=== PATIENT | male | born 1960 ===

== ENCOUNTER 2018-02-06 12:28 | Inpatient (IN) | payer MEDICARE, MEDICAID ==
--- NOTE | 2018-02-06 13:31 | C.PDOC ---
History Of Present Illness 57 year old male with +HIV CD4 viral load presents to the ED for left leg pain and a positve DVT study. Per Dr. calix patient has multiple DVTs on the left leg and sent to the ED for evaluation and treatment. Denies fever, nausea, vomiting, and other associated symptoms. Time Seen by Provider: 02/06/18 13:20 Chief Complaint (Nursing): Lower Extremity Problem/Injury History Per: Patient History/Exam Limitations: no limitations Onset/Duration Of Symptoms: Days Current Symptoms Are (Timing): Still Present Past Medical History Reviewed: Historical Data, Nursing Documentation, Vital Signs Vital Signs: Last Vital Signs Temp 98.8 F 02/07/18 15:00 Pulse 78 02/07/18 15:00 Resp 20 02/07/18 15:00 BP 108/68 02/07/18 15:00 Pulse Ox 96 02/07/18 15:00 - Medical History PMH: HIV, HTN, Hypercholesterolemia Other Surgeries: left hip surgery, right leg implant Family History: States: Unknown Family Hx - Social History Hx Alcohol Use: No Hx Substance Use: No - Immunization History Hx Tetanus Toxoid Vaccination: No Hx Influenza Vaccination: No Hx Pneumococcal Vaccination: No Review Of Systems Except As Marked, All Systems Reviewed And Found Negative. Constitutional: Negative for: Fever, Chills Gastrointestinal: Negative for: Nausea, Vomiting Musculoskeletal: Positive for: Leg Pain (left leg pain) Physical Exam - Physical Exam Appears: Non-toxic Skin: Warm, Dry Head: Atraumatic, Normacephalic Eye(s): bilateral: Normal Inspection Oral Mucosa: Moist Cardiovascular: Rhythm Regular Respiratory: Other (NARD) Extremity: No Deformity, Swelling (left leg ) Neurological/Psych: Oriented x3, Normal Speech, Normal Sensation, Normal Reflexes ED Course And Treatment - Laboratory Results Result Diagrams: 02/07/18 06:14 02/07/18 06:14 O2 Sat by Pulse Oximetry: 97 (RA) Pulse Ox Interpretation: Normal Medical Decision Making Medical Decision Making: Plan: --Blood sent. --Venous Duplex Scan Lower Left Extremity. Progress/Update Per pmd, multiple dvt left leg. needs admission. no cardiopulm complaint. no cp no sob. Discussed case with Dr. Valdovinos who agreed to take on the case. Disposition - Disposition Disposition: HOSPITALIZED Disposition Time: 03:00 Condition: STABLE - Clinical Impression Clinical Impression: DVT (deep venous thrombosis) - Scribe Statement The provider has reviewed the documentation as recorded by the Scribe (Leny Lopes) Provider Attestation: All medical record entries made by the Scribe were at my direction and personally dictated by me. I have reviewed the chart and agree that the record accurately reflects my personal performance of the history, physical exam, medical decision making, and the department course for this patient. I have also personally directed, reviewed, and agree with the discharge instructions and disposition.
[2018-02-06 14:12] LABS: BASO # 0.1 K/uL (0.0-0.2); BASO % 1.1 % (0.0-2.0); EOS # 0.2 K/uL (0.0-0.7); EOS % 3.6 % (0.0-4.0); HEMOGLOBIN 14.6 g/dL (12.0-18.0); LYMPH # 1.9 K/uL (1.0-4.3); LYMPH % 38.3 % (20.0-40.0); MEAN CELL VOLUME 79.3 fL (80.0-94.0); MEAN CORPUSCULAR HEMOGLOBIN 26.5 pg (27.0-31.0); MEAN CORPUSCULAR HGB CONC 33.4 g/dL (33.0-37.0); MONO # 0.4 K/uL (0.0-0.8); MONO % 7.7 % (0.0-10.0); NEUT # 2.5 K/uL (1.8-7.0); NEUT % 49.3 % (50.0-75.0); RBC 5.5 Mil/uL (4.40-5.90); RED CELL DISTRIBUTION WIDTH 13.9 % (11.5-14.5); WHITE BLOOD COUNT 5.1 K/uL (4.8-10.8)
[2018-02-06 14:20] LABS: ALBUMIN 4.3 g/dL (3.5-5.0); BLOOD UREA NITROGEN 16 mg/dL (9-20); CALCIUM 9.3 mg/dl (8.6-10.4); GFR NON-AFRICAN AMERICAN > 60
[2018-02-06 14:23] LABS: INR 1.1; PROTHROMBIN TIME 11.9 SECONDS (9.7-12.2)
[2018-02-06 14:31] LABS: ALT/SGPT 85 U/L (21-72); AST/SGOT 57 U/L (17-59)
[2018-02-06] MEDS ORDERED: Enoxaparin 150 mg Syringe SC STA (14:45)
[2018-02-06 14:48] VITALS: RESP 20
[2018-02-07 06:36] LABS: BASO % 0.9 % (0.0-2.0); EOS # 0.3 K/uL (0.0-0.7); EOS % 5.6 % (0.0-4.0); HEMOGLOBIN 14.4 g/dL (12.0-18.0); LYMPH # 1.7 K/uL (1.0-4.3); LYMPH % 36.8 % (20.0-40.0); MEAN CELL VOLUME 78.9 fL (80.0-94.0); MEAN CORPUSCULAR HEMOGLOBIN 26.4 pg (27.0-31.0); MEAN CORPUSCULAR HGB CONC 33.4 g/dL (33.0-37.0); MEAN PLATELET VOLUME 8.8 fL (7.2-11.7); MONO # 0.4 K/uL (0.0-0.8); MONO % 9.2 % (0.0-10.0); NEUT # 2.1 K/uL (1.8-7.0); NEUT % 47.5 % (50.0-75.0); NRBC % 0.1 % (0.0-2.0); RBC 5.46 Mil/uL (4.40-5.90); RED CELL DISTRIBUTION WIDTH 13.6 % (11.5-14.5); WHITE BLOOD COUNT 4.5 K/uL (4.8-10.8)
[2018-02-07 06:40] LABS: INR 1.1; PROTHROMBIN TIME 12.1 SECONDS (9.7-12.2)
[2018-02-07 07:44] LABS: ALB/GLOB RATIO 0.9 (1.0-2.1); ALBUMIN 3.7 g/dL (3.5-5.0); ALT/SGPT 73 U/L (21-72); AST/SGOT 45 U/L (17-59); BLOOD UREA NITROGEN 15 mg/dL (9-20); GFR NON-AFRICAN AMERICAN > 60
[2018-02-07] MEDS ORDERED: Enoxaparin 60 mg Syringe SC SCH (10:00)
--- NOTE | 2018-02-07 11:05 | CP.PCM.HP ---
History of Present Illness - History of Present Illness History of Present Illness: 57 year old male with +HIV CD4 viral load presents to the ED for left leg pain and a positve DVT study. Per Dr. calix patient has multiple DVTs on the left leg and sent to the ED for evaluation and treatment. Denies fever, nausea, vomiting, and other associated symptoms. Hx HIV/AIDS, [employer] Toxo, Left weakness , OA , s/p THR, venous stasis, stasis dermatitis , HTN NKDA Meds Symtuza, Bactrim Present on Admission - Present on Admission Any Indicators Present on Admission: No History of DVT/PE: No History of Uncontrolled Diabetes: No Urinary Catheter: No Decubitus Ulcer Present: No History Surgical Site Infection Following: None Review of Systems - Review of Systems All systems: reviewed and no additional remarkable complaints except - Constitutional Constitutional: absent: As Per HPI, Anorexia, Chills, Daytime Sleepiness, Exce ssive Sweating, Fatigue, Fever, Frequent Falls, Headache, Increased Appetite, Lethargy, Malaise, Night Sweats, Snoring, Sleep Apnea, Weight Gain, Weight Loss, Weakness, Other - EENT Eyes: absent: As Per HPI, Blind Spots, Blurred Vision, Change in Vision, Decrea sed Night Vision, Diplopia, Discharge, Dry Eye, Exophthalmos, Floaters, Irritation, Itchy Eyes, Loss of Peripheral Vision, Pain, Photophobia, Requires Corrective Lenses, Sees Flashes, Spots in Vision, Tunnel Vision, Other Visual Disturbances, Loss of Vision, Other Ears: absent: As Per HPI, Decreased Hearing, Ear Discharge, Ear Pain, Tinnitus, Abnormal Hearing, Disequilibrium, Dizziness, Other Nose/Mouth/Throat: absent: As Per HPI, Epistaxis, Nasal Congestion, Nasal Discharge, Nasal Obstruction, Nasal Trauma, Nose Pain, Post Nasal Drip, Sinus Pa in, Sinus Pressure, Bleeding Gums, Change in Voice, Dental Pain, Dry Mouth, Dysphagia, Halitosis, Hoarsness, Lip Swelling, Mouth Lesions, Mouth Pain, Odynophagia, Sore Throat, Throat Swelling, Tongue Swelling, Facial Pain, Neck Pain, Neck Mass, Other - Cardiovascular Cardiovascular: As Per HPI - Respiratory Respiratory: absent: As Per HPI, Cough, Dyspnea, Hemoptysis, Dyspnea on Exertion, Wheezing, Snoring, Stridor, Pain on Inspiration, Chest Congestion, Excessive Mucous Production, Change in Mucous Color, Pain with Coughing, Other - Gastrointestinal Gastrointestinal: absent: As Per HPI, Abdominal Pain, Belching, Bloating, Change in Bowel Habits, Change in Stool Character, Coffee Ground Emesis, Constipation, Cramping, Diarrhea, Dyspepsia, Dysphagia, Early Satiety, Excessive Flatus, Fecal Incontinence, Heartburn, Hematemesis, Hematochezia, Loose Stools, Melena, Nausea, Odynophagia, Temesmus, Vomiting, Other - Genitourinary Genitourinary: absent: As Per HPI, Change in Urinary Stream, Difficulty Urinating, Dysuria, Flank Pain, Hematuria, Pyuria, Nocturia, Urinary Incontinence, Urinary Frequency, Urinary Hesitance, Urinary Urgency, Voiding Freq/Small Amts, Freq UTI, Hx Renal/Bladder Calculi, Hx /Renal Surgery, Bladder Distension, Other - Musculoskeletal Musculoskeletal: As Per HPI - Integumentary Integumentary: As Per HPI - Neurological Neurological: As Per HPI - Psychiatric Psychiatric: absent: As Per HPI, Abnormal Sleep Pattern, Anhedonia, Anxiety, Auditory Hallucinations, Behavioral Changes, Change in Appetite, Change in Libido, Confusion, Depression, Difficulty Concentrating, Hallucinations, Homicidal Ideation, Hopelessness, Irritability, Memory Loss, Mood Swings, Panic Attacks, Paranoia, Suicidal Ideation, Visual Hallucinations, Tactile Hallucinations, Other - Endocrine Endocrine: absent: As Per HPI, Change in Body Appearance, Change in Libido, Cold Intolorance, Deepening of Voice, Excessive Sweating, Fatigue, Flushing, Heat Intolorance, Increase in Ring/Shoe/Hat Size, Palpitations, Polydipsia, Polyphagia, Polyuria, Other - Hematologic/Lymphatic Hematologic: absent: As Per HPI, Easy Bleeding, Easy Bruising, Lymphadenopathy, Other Past Patient History - Past Medical History & Family History Past Medical History?: Yes - Past Social History Smoking Status: Never Smoked - CARDIAC Hx Hypercholesterolemia: Yes Hx Hypertension: Yes - NEUROLOGICAL HX Cerebrovascular Accident: Yes (1996) - HEENT Hx HEENT Problems: No - RENAL Hx Chronic Kidney Disease: No - ENDOCRINE/METABOLIC Hx Endocrine Disorders: No - HEMATOLOGICAL/ONCOLOGICAL Hx Blood Disorders: No Hx Human Immunodeficiency Virus (HIV): Yes - MUSCULOSKELETAL/RHEUMATOLOGICAL Hx Falls: No - PSYCHIATRIC Hx Substance Use: No - SURGICAL HISTORY Hx Surgeries: Yes Hx Orthopedic Surgery: Yes (left hip sx, right leg implant) Other/Comment: left leg artery unclogged - ANESTHESIA Hx Anesthesia: Yes Hx Anesthesia Reactions: No Hx Malignant Hyperthermia: No Meds Allergies/Adverse Reactions: Allergies Allergy/AdvReac Type Severity Reaction Status Date / Time amoxicillin Allergy Intermediate RASH Verified 02/06/18 12:55 Physical Exam - Constitutional Appears: Non-toxic, No Acute Distress, Chronically Ill - Head Exam Head Exam: ATRAUMATIC, NORMAL INSPECTION, NORMOCEPHALIC - Eye Exam Eye Exam: EOMI, PERRL. absent: Scleral icterus - ENT Exam ENT Exam: Mucous Membranes Dry - Neck Exam Neck exam: Negative for: Lymphadenopathy - Respiratory Exam Respiratory Exam: Decreased Breath Sounds, Clear to Auscultation Bilateral - Cardiovascular Exam Cardiovascular Exam: REGULAR RHYTHM, +S1, +S2 - GI/Abdominal Exam GI & Abdominal Exam: Diminished Bowel Sounds, Soft. absent: Tenderness - Rectal Exam Rectal Exam: Deferred - Exam Exam: NORMAL INSPECTION - Extremities Exam Extremities exam: Positive for: pedal edema, tenderness, pedal pulses present. Negative for: calf tenderness - Back Exam Back exam: absent: CVA tenderness (L), CVA tenderness (R) - Neurological Exam Neurological exam: Alert, CN II-XII Intact, Oriented x3, Reflexes Normal - Psychiatric Exam Psychiatric exam: Normal Mood - Skin Skin Exam: Dry, Intact Results - Vital Signs Recent Vital Signs: Last Vital Signs Temp 98.5 F 02/07/18 08:03 Pulse 72 02/07/18 08:03 Resp 20 02/07/18 08:03 BP 132/87 02/07/18 08:03 Pulse Ox 97 02/07/18 08:03 - Labs Result Diagrams: 02/07/18 06:14 02/07/18 06:14 Labs: Laboratory Results - last 24 hr 02/06/18 02/06/18 02/06/18 14:05 14:05 14:05 WBC 5.1 RBC 5.50 Hgb 14.6 Hct 43.6 MCV 79.3 L MCH 26.5 L MCHC 33.4 RDW 13.9 Plt Count 175 MPV 9.0 Neut % (Auto) 49.3 L Lymph % (Auto) 38.3 Alexander % (Auto) 7.7 Eos % (Auto) 3.6 Baso % (Auto) 1.1 Neut # (Auto) 2.5 Lymph # (Auto) 1.9 Alexander # (Auto) 0.4 Eos # (Auto) 0.2 Baso # (Auto) 0.1 PT 11.9 INR 1.1 APTT 34 Sodium 142 Potassium 4.5 Chloride 106 Carbon Dioxide 26 Anion Gap 14 BUN 16 Creatinine 0.6 L Est GFR ( Amer) > 60 Est GFR (Non-Af Amer) > 60 Random Glucose 89 Calcium 9.3 Total Bilirubin 0.8 AST 57 ALT 85 H Alkaline Phosphatase 61 Total Protein 8.7 H Albumin 4.3 Globulin 4.4 H Albumin/Globulin Ratio 1.0 02/07/18 02/07/18 02/07/18 06:14 06:14 06:14 WBC 4.5 L RBC 5.46 Hgb 14.4 Hct 43.1 MCV 78.9 L MCH 26.4 L MCHC 33.4 RDW 13.6 Plt Count 164 MPV 8.8 Neut % (Auto) 47.5 L Lymph % (Auto) 36.8 Alexander % (Auto) 9.2 Eos % (Auto) 5.6 H Baso % (Auto) 0.9 Neut # (Auto) 2.1 Lymph # (Auto) 1.7 Alexander # (Auto) 0.4 Eos # (Auto) 0.3 Baso # (Auto) 0.0 PT 12.1 INR 1.1 APTT 37 H Sodium 142 Potassium 4.0 Chloride 104 Carbon Dioxide 27 Anion Gap 15 BUN 15 Creatinine 0.8 Est GFR ( Amer) > 60 Est GFR (Non-Af Amer) > 60 Random Glucose 100 Calcium 9.0 Total Bilirubin 0.5 AST 45 ALT 73 H Alkaline Phosphatase 64 Total Protein 7.7 Albumin 3.7 Globulin 4.0 H Albumin/Globulin Ratio 0.9 L Assessment & Plan (1) HIV (human immunodeficiency virus infection) Status: Acute (2) AIDS (acquired immunodeficiency syndrome), CD4 <=200 Status: Acute (3) DVT (deep venous thrombosis) Status: Acute (4) DVT (deep venous thrombosis) Status: Acute - Assessment and Plan (Free Text) Assessment: admitted for anticoagulation eval for DVT, PVD in setting of AIDS
--- NOTE | 2018-02-07 11:09 | RAD ---
Date of service: 02/07/2018 HISTORY: No admissions/DVT. COMPARISON: No prior. TECHNIQUE: Chest PA and lateral FINDINGS: LUNGS: No active pulmonary disease. PLEURA: No significant pleural effusion identified. No pneumothorax apparent. CARDIOVASCULAR: No radiographic findings to suggest acute or significant cardiovascular disease. OSSEOUS STRUCTURES: No significant abnormalities. VISUALIZED UPPER ABDOMEN: Normal. OTHER FINDINGS: None. IMPRESSION: No active disease.
--- NOTE | 2018-02-07 12:58 | CP.PCM.PN ---
Subjective - Date & Time of Evaluation Date of Evaluation: 02/07/18 Time of Evaluation: 09:00 - Subjective Subjective: awake alert mild pain NAD Objective - Vital Signs/Intake and Output Vital Signs (last 24 hours): Temp Pulse Resp BP Pulse Ox 98.5 F 72 20 132/87 97 02/07/18 08:03 02/07/18 08:03 02/07/18 08:03 02/07/18 08:03 02/07/18 08:03 Intake and Output: 02/07/18 02/07/18 06:59 18:59 Intake Total 180 Balance 180 - Medications Medications: Current Medications Acetaminophen (Tylenol 325mg Tab) 650 mg PO Q6 PRN PRN Reason: Pain, moderate (4-7) Amlodipine Besylate (Norvasc) 5 mg PO DAILY [facility] Last Admin: 02/07/18 10:48 Dose: 5 mg Apixaban (Eliquis) 10 mg PO BID [facility] Stop: 02/17/18 10:01 Apixaban (Eliquis) 5 mg PO BID [facility] Emtricitabine/Tenofovir (Truvada 200 Mg-300 Mg) 1 tab PO DAILY [facility]; Protocol Enoxaparin Sodium (Lovenox) 90 mg SC Q12 [facility] Stop: 02/10/18 10:01 Famotidine (Pepcid) 20 mg PO BID [facility] Last Admin: 02/07/18 10:48 Dose: 20 mg Raltegravir (Isentress) 400 mg PO BID [facility]; Protocol Trimethoprim/Sulfamethoxazole (Bactrim Ds Tab) 1 tab PO Q12H [facility]; Protocol - Labs Labs: 02/07/18 06:14 02/07/18 06:14 PT 12.1 SECONDS (9.7-12.2) 02/07/18 06:14 INR 1.1 02/07/18 06:14 APTT 37 SECONDS (21-34) H 02/07/18 06:14 - Constitutional Appears: Non-toxic, Chronically Ill - Head Exam Head Exam: NORMOCEPHALIC - Eye Exam Eye Exam: PERRL - ENT Exam ENT Exam: Mucous Membranes Dry - Neck Exam Neck Exam: absent: Lymphadenopathy - Respiratory Exam Respiratory Exam: Decreased Breath Sounds - Cardiovascular Exam Cardiovascular Exam: REGULAR RHYTHM - GI/Abdominal Exam GI & Abdominal Exam: Distended, Soft - Rectal Exam Rectal Exam: Deferred - Exam Exam: NORMAL INSPECTION - Extremities Exam Extremities Exam: Pedal Edema - Back Exam Back Exam: absent: CVA tenderness (L), CVA tenderness (R) Assessment and Plan (1) HIV (human immunodeficiency virus infection) Status: Acute (2) AIDS (acquired immunodeficiency syndrome), CD4 <=200 Status: Acute (3) DVT (deep venous thrombosis) Status: Acute (4) DVT (deep venous thrombosis) Status: Acute - Assessment and Plan (Free Text) Assessment: will get vascular to eval
--- NOTE | 2018-02-07 13:11 | VASCLAB ---
Date of service: 02/07/2018 PROCEDURE: Lower Extremity Venous Duplex Exam. HISTORY: Edema PRIORS: None. TECHNIQUE: Bilateral common femoral, femoral, popliteal and posterior tibial, peroneal and great saphenous veins were evaluated. Flow was assessed with color Doppler, compressibility, assessment of phasic flow and augmentation response. Report prepared by LUIS Green FINDINGS: RIGHT: 1. Common Femoral Vein: 1.1. Compressibility - Fully compressible: Thrombus - None : Flow - Phasic: Augmentation -Normal: Reflux - None. 2. Femoral Vein: 2.1. Compressibility - Fully compressible: Thrombus - None : Flow - Phasic: Augmentation -Normal: Reflux - Severe >3.35s 3. Popliteal Vein: 3.1. Compressibility - Fully compressible: Thrombus - None : Flow - Phasic: Augmentation -Normal: Reflux - Severe.4.10s 4. Posterior Tibial Vein: 4.1. Compressibility - Fully compressible: Thrombus - None: Flow - Phasic: Augmentation -Normal: Reflux - None. 5. Peroneal Vein: 5.1. Compressibility - Fully compressible: Thrombus - None: Flow - Phasic: Augmentation -Normal: Reflux - None. 6. Great Saphenous Vein: 6.1. Compressibility - Fully compressible: Thrombus - None: Flow - Phasic: Augmentation - Normal: Reflux - None. LEFT: 1. Common Femoral Vein: 1.1. Compressibility - Fully compressible: Thrombus - None: Flow - Phasic: Augmentation -Normal: Reflux - Mild1.89s 2. Femoral Vein: 2.1. Compressibility - Fully compressible: Thrombus - None: Flow - Phasic: Augmentation -Normal: Reflux - Mild 1.82s 3. Popliteal Vein: 3.1. Compressibility - Fully compressible: Thrombus - None : Flow - Phasic: Augmentation -Normal: Reflux - Mild 2.48s 4. Posterior Tibial Vein: 4.1. Compressibility - Fully compressible: Thrombus - None: Flow - Phasic: Augmentation -Normal: Reflux - None. 5. Peroneal Vein: 5.1. Compressibility - Fully compressible: Thrombus - None: Flow - Phasic: Augmentation -Normal: Reflux - None. 6. Great Saphenous Vein: 6.1. Compressibility - Fully compressible: Thrombus - None: Flow - Phasic: Augmentation - Normal: Reflux - None. OTHER FINDINGS: Right: None significant. Left: None significant. IMPRESSION: Right: No evidence of deep or superficial vein thrombosis of the right lower extremity. Valvular incompetence noted of the right side. Left: No evidence of deep or superficial vein thrombosis of the left lower extremity. Valvular incompetence noted of the left side.
[2018-02-07] MEDS: Tmp-Smz 800 mg-160 mg DS Tab PO SCH ×2 (13:48→21:50)
[2018-02-07] MEDS: Emtricitabine-Tenofovir 200 mg-300 mg Tab PO SCH (13:49)
--- NOTE | 2018-02-07 16:25 | CP.PCM.PN ---
Subjective - Date & Time of Evaluation Date of Evaluation: 02/07/18 Time of Evaluation: 07:00 - Subjective Subjective: repeat venous doppler negative will discuss with Dr Whitehead Objective - Vital Signs/Intake and Output Vital Signs (last 24 hours): Temp Pulse Resp BP Pulse Ox 98.5 F 72 20 132/87 97 02/07/18 08:03 02/07/18 08:03 02/07/18 08:03 02/07/18 08:03 02/07/18 08:03 Intake and Output: 02/07/18 02/07/18 06:59 18:59 Intake Total 730 Balance 730 - Medications Medications: Current Medications Acetaminophen (Tylenol 325mg Tab) 650 mg PO Q6 PRN PRN Reason: Pain, moderate (4-7) Amlodipine Besylate (Norvasc) 5 mg PO DAILY [facility] Last Admin: 02/07/18 10:48 Dose: 5 mg Apixaban (Eliquis) 10 mg PO BID [facility] Stop: 02/17/18 10:01 Apixaban (Eliquis) 5 mg PO BID [facility] Emtricitabine/Tenofovir (Truvada 200 Mg-300 Mg) 1 tab PO DAILY [facility]; Protocol Last Admin: 02/07/18 13:49 Dose: 1 tab Enoxaparin Sodium (Lovenox) 90 mg SC Q12 [facility] Stop: 02/10/18 10:01 Famotidine (Pepcid) 20 mg PO BID [facility] Last Admin: 02/07/18 10:48 Dose: 20 mg Raltegravir (Isentress) 400 mg PO BID [facility]; Protocol Trimethoprim/Sulfamethoxazole (Bactrim Ds Tab) 1 tab PO Q12 [facility]; Protocol Last Admin: 02/07/18 13:48 Dose: 1 tab - Labs Labs: 02/07/18 06:14 02/07/18 06:14 PT 12.1 SECONDS (9.7-12.2) 02/07/18 06:14 INR 1.1 02/07/18 06:14 APTT 37 SECONDS (21-34) H 02/07/18 06:14 Assessment and Plan (1) HIV (human immunodeficiency virus infection) Status: Acute (2) AIDS (acquired immunodeficiency syndrome), CD4 <=200 Status: Acute (3) DVT (deep venous thrombosis) Status: Acute (4) DVT (deep venous thrombosis) Status: Acute
--- NOTE | 2018-02-07 20:14 | CP.PCM.CON ---
History of Present Illness - History of Present Illness History of Present Illness: 57 year old male with a history of HIV on HAART, HTN, LLE DVT about 7-8 years ago per the patient on coumadin for several months, presenting with LLE pain and swelling and concern for DVT of the LLE. The patient notes to undergoing an ultrasound of the left leg and told he may have a blood clot and told to report to the hospital. Venous duplex B/L LE's negative. Past medical history: HIV on HAART, HTN, LLE DVT Past surgical history: left ankle skin graft Family history: Denies hematologic and oncologic problems Social history: Denies tobacco, alcohol, and illicit drug use. Allergies: Amoxicillin Review of systems: All remaining review of systems including HEENT, cardiovascular, respiratory, gastrointestinal, genitourinary, musculoskeletal, dermatologic, neurologic, and psychiatric are negative unless mentioned in the HPI. Past Patient History - Past Medical History & Family History Past Medical History?: Yes - Past Social History Smoking Status: Never Smoked - CARDIAC Hx Hypercholesterolemia: Yes Hx Hypertension: Yes - NEUROLOGICAL HX Cerebrovascular Accident: Yes (1996) - HEENT Hx HEENT Problems: No - RENAL Hx Chronic Kidney Disease: No - ENDOCRINE/METABOLIC Hx Endocrine Disorders: No - HEMATOLOGICAL/ONCOLOGICAL Hx Blood Disorders: No Hx Human Immunodeficiency Virus (HIV): Yes - MUSCULOSKELETAL/RHEUMATOLOGICAL Hx Falls: No - PSYCHIATRIC Hx Substance Use: No - SURGICAL HISTORY Hx Surgeries: Yes Hx Orthopedic Surgery: Yes (left hip sx, right leg implant) Other/Comment: left leg artery unclogged - ANESTHESIA Hx Anesthesia: Yes Hx Anesthesia Reactions: No Hx Malignant Hyperthermia: No Meds Allergies/Adverse Reactions: Allergies Allergy/AdvReac Type Severity Reaction Status Date / Time amoxicillin Allergy Intermediate RASH Verified 02/06/18 12:55 - Medications Medications: Current Medications Acetaminophen (Tylenol 325mg Tab) 650 mg PO Q6 PRN PRN Reason: Pain, moderate (4-7) Amlodipine Besylate (Norvasc) 5 mg PO DAILY [facility] Last Admin: 02/07/18 10:48 Dose: 5 mg Apixaban (Eliquis) 10 mg PO BID [facility] Stop: 02/17/18 10:01 Apixaban (Eliquis) 5 mg PO BID [facility] Emtricitabine/Tenofovir (Truvada 200 Mg-300 Mg) 1 tab PO DAILY [facility]; Protocol Last Admin: 02/07/18 13:49 Dose: 1 tab Enoxaparin Sodium (Lovenox) 90 mg SC Q12 [facility] Stop: 02/10/18 10:01 Famotidine (Pepcid) 20 mg PO BID [facility] Last Admin: 02/07/18 18:18 Dose: 20 mg Raltegravir (Isentress) 400 mg PO BID [facility]; Protocol Last Admin: 02/07/18 18:18 Dose: 400 mg Trimethoprim/Sulfamethoxazole (Bactrim Ds Tab) 1 tab PO Q12 [facility]; Protocol Last Admin: 02/07/18 13:48 Dose: 1 tab Physical Exam - Head Exam Head Exam: ATRAUMATIC - Eye Exam Eye Exam: Normal appearance - ENT Exam ENT Exam: Mucous Membranes Dry - Respiratory Exam Respiratory Exam: NORMAL BREATHING PATTERN - Cardiovascular Exam Cardiovascular Exam: +S1, +S2 - GI/Abdominal Exam GI & Abdominal Exam: Normal Bowel Sounds - Extremities Exam Extremities exam: Positive for: pedal edema - Neurological Exam Neurological exam: Oriented x3 - Psychiatric Exam Psychiatric exam: Normal Affect, Normal Mood - Skin Skin Exam: Warm Results - Vital Signs Recent Vital Signs: Last Vital Signs Temp 98.8 F 02/07/18 15:00 Pulse 78 02/07/18 15:00 Resp 20 02/07/18 15:00 BP 108/68 02/07/18 15:00 Pulse Ox 96 02/07/18 15:00 - Labs Result Diagrams: 02/07/18 06:14 02/07/18 06:14 Labs: Laboratory Results - last 24 hr 02/07/18 02/07/18 02/07/18 06:14 06:14 06:14 WBC 4.5 L RBC 5.46 Hgb 14.4 Hct 43.1 MCV 78.9 L MCH 26.4 L MCHC 33.4 RDW 13.6 Plt Count 164 MPV 8.8 Neut % (Auto) 47.5 L Lymph % (Auto) 36.8 Jerome % (Auto) 9.2 Eos % (Auto) 5.6 H Baso % (Auto) 0.9 Neut # (Auto) 2.1 Lymph # (Auto) 1.7 Jerome # (Auto) 0.4 Eos # (Auto) 0.3 Baso # (Auto) 0.0 PT 12.1 INR 1.1 APTT 37 H Sodium 142 Potassium 4.0 Chloride 104 Carbon Dioxide 27 Anion Gap 15 BUN 15 Creatinine 0.8 Est GFR ( Amer) > 60 Est GFR (Non-Af Amer) > 60 Random Glucose 100 Calcium 9.0 Total Bilirubin 0.5 AST 45 ALT 73 H Alkaline Phosphatase 64 Total Protein 7.7 Albumin 3.7 Globulin 4.0 H Albumin/Globulin Ratio 0.9 L Assessment & Plan (1) Varicose vein of leg Assessment and Plan: venous duplex of LE's negative for DVT will discontinue therapeutic anticoagulation and start prophylaxis dosing Status: Acute (2) Leukopenia Assessment and Plan: mild, secondary to HIV Status: Acute (3) Microcytic erythrocytes Assessment and Plan: rule out iron deficiency rule out hemoglobinopathy Thank you for this interesting consult. Status: Acute
[2018-02-07] MEDS ORDERED: Enoxaparin 100 mg Syringe SC SCH (22:00)
--- NOTE | 2018-02-08 07:29 | CP.PCM.CON ---
History of Present Illness - History of Present Illness History of Present Illness: Reason for consult: DVT, atypical chest pain HPI 57 year old male with +HIV CD4 viral load presents to the ED for left leg pain and a positve DVT study. Per Dr. calix patient has multiple DVTs on the left leg and sent to the ED for evaluation and treatment. Denies fever, nausea, vomiting, and other associated symptoms. Hx HIV/AIDS, [employer] Toxo, Left weakness , OA , s/p THR, venous stasis, stasis dermatitis , HTN NKDA Meds Symtuza, Bactrim Review of Systems - Constitutional Constitutional: As Per HPI - Cardiovascular Cardiovascular: Chest Pain - Musculoskeletal Additional comments: +leg pain Past Patient History - Past Medical History & Family History Past Medical History?: Yes - Past Social History Smoking Status: Never Smoked - CARDIAC Hx Hypercholesterolemia: Yes Hx Hypertension: Yes - NEUROLOGICAL HX Cerebrovascular Accident: Yes (1996) - HEENT Hx HEENT Problems: No - RENAL Hx Chronic Kidney Disease: No - ENDOCRINE/METABOLIC Hx Endocrine Disorders: No - HEMATOLOGICAL/ONCOLOGICAL Hx Human Immunodeficiency Virus (HIV): Yes - MUSCULOSKELETAL/RHEUMATOLOGICAL Hx Falls: No - PSYCHIATRIC Hx Substance Use: No - SURGICAL HISTORY Hx Surgeries: Yes Hx Orthopedic Surgery: Yes (left hip sx, right leg implant) Other/Comment: left leg artery unclogged - ANESTHESIA Hx Anesthesia: Yes Hx Anesthesia Reactions: No Hx Malignant Hyperthermia: No Meds Allergies/Adverse Reactions: Allergies Allergy/AdvReac Type Severity Reaction Status Date / Time amoxicillin Allergy Intermediate RASH Verified 02/06/18 12:55 - Medications Medications: Current Medications Acetaminophen (Tylenol 325mg Tab) 650 mg PO Q6 PRN PRN Reason: Pain, moderate (4-7) Amlodipine Besylate (Norvasc) 5 mg PO DAILY [facility] Last Admin: 02/07/18 10:48 Dose: 5 mg Emtricitabine/Tenofovir (Truvada 200 Mg-300 Mg) 1 tab PO DAILY [facility]; Protocol Last Admin: 02/07/18 13:49 Dose: 1 tab Enoxaparin Sodium (Lovenox) 40 mg SC DAILY [facility] Famotidine (Pepcid) 20 mg PO BID [facility] Last Admin: 02/07/18 18:18 Dose: 20 mg Raltegravir (Isentress) 400 mg PO BID [facility]; Protocol Last Admin: 02/07/18 18:18 Dose: 400 mg Rosuvastatin Calcium (Crestor) 10 mg PO HS [facility] Last Admin: 02/07/18 21:50 Dose: 10 mg Trimethoprim/Sulfamethoxazole (Bactrim Ds Tab) 1 tab PO Q12 [facility]; Protocol Last Admin: 02/07/18 21:50 Dose: 1 tab Physical Exam - Constitutional Appears: Non-toxic - Head Exam Head Exam: NORMAL INSPECTION - Eye Exam Eye Exam: absent: Scleral icterus - Respiratory Exam Respiratory Exam: NORMAL BREATHING PATTERN - Cardiovascular Exam Cardiovascular Exam: REGULAR RHYTHM - GI/Abdominal Exam GI & Abdominal Exam: Soft. absent: Tenderness - Extremities Exam Extremities exam: Negative for: pedal edema Additional comments: +leg pain - Neurological Exam Neurological exam: Alert, Oriented x3 Results - Vital Signs Recent Vital Signs: Last Vital Signs Temp 98.2 F 02/08/18 00:42 Pulse 72 02/08/18 00:42 Resp 20 02/08/18 00:42 BP 124/81 02/08/18 00:42 Pulse Ox 97 02/08/18 00:42 - Labs Result Diagrams: 02/07/18 06:14 02/07/18 06:14 Labs: Laboratory Results - last 24 hr 02/07/18 06:14 Sodium 142 Potassium 4.0 Chloride 104 Carbon Dioxide 27 Anion Gap 15 BUN 15 Creatinine 0.8 Est GFR ( Amer) > 60 Est GFR (Non-Af Amer) > 60 Random Glucose 100 Calcium 9.0 Total Bilirubin 0.5 AST 45 ALT 73 H Alkaline Phosphatase 64 Total Protein 7.7 Albumin 3.7 Globulin 4.0 H Albumin/Globulin Ratio 0.9 L Assessment & Plan - Assessment and Plan (Free Text) Assessment: r/o DVT Atypical chest pain HIV+ HTN Plan: Anticoagulation Venous duplex ultrasound of LE Alan when more stable
[2018-02-08] MEDS: Emtricitabine-Tenofovir 200 mg-300 mg Tab PO SCH (10:07)
[2018-02-08] MEDS: Tmp-Smz 800 mg-160 mg DS Tab PO SCH (10:07)
[2018-02-08] MEDS: Enoxaparin 40 mg Syringe SC SCH (10:08)
--- NOTE | 2018-02-08 18:52 | CP.PCM.PN ---
Subjective - Date & Time of Evaluation Date of Evaluation: 02/08/18 Time of Evaluation: 08:00 - Subjective Subjective: awakee and alert less pain and swelling left leg Objective - Vital Signs/Intake and Output Vital Signs (last 24 hours): Temp Pulse Resp BP Pulse Ox 98.6 F 79 20 112/77 98 02/08/18 16:00 02/08/18 16:00 02/08/18 16:00 02/08/18 16:00 02/08/18 16:00 Intake and Output: 02/08/18 02/08/18 06:59 18:59 Intake Total 450 600 Balance 450 600 - Medications Medications: Current Medications Acetaminophen (Tylenol 325mg Tab) 650 mg PO Q6 PRN PRN Reason: Pain, moderate (4-7) Amlodipine Besylate (Norvasc) 5 mg PO DAILY [facility] Last Admin: 02/08/18 10:07 Dose: 5 mg Emtricitabine/Tenofovir (Truvada 200 Mg-300 Mg) 1 tab PO DAILY [facility]; Protocol Last Admin: 02/08/18 10:07 Dose: 1 tab Enoxaparin Sodium (Lovenox) 40 mg SC DAILY [facility] Last Admin: 02/08/18 10:08 Dose: 40 mg Famotidine (Pepcid) 20 mg PO BID [facility] Last Admin: 02/08/18 18:12 Dose: 20 mg Raltegravir (Isentress) 400 mg PO BID [facility]; Protocol Last Admin: 02/08/18 18:11 Dose: 400 mg Rosuvastatin Calcium (Crestor) 10 mg PO HS [facility] Last Admin: 02/07/18 21:50 Dose: 10 mg - Labs Labs: 02/07/18 06:14 02/07/18 06:14 PT 12.1 SECONDS (9.7-12.2) 02/07/18 06:14 INR 1.1 02/07/18 06:14 APTT 37 SECONDS (21-34) H 02/07/18 06:14 - Constitutional Appears: Non-toxic, Chronically Ill - Head Exam Head Exam: NORMOCEPHALIC - Eye Exam Eye Exam: PERRL - ENT Exam ENT Exam: Mucous Membranes Dry - Neck Exam Neck Exam: absent: Lymphadenopathy - Respiratory Exam Respiratory Exam: Decreased Breath Sounds - Cardiovascular Exam Cardiovascular Exam: REGULAR RHYTHM - GI/Abdominal Exam GI & Abdominal Exam: Distended, Soft - Rectal Exam Rectal Exam: Deferred - Exam Exam: NORMAL INSPECTION - Extremities Exam Extremities Exam: Pedal Edema - Back Exam Back Exam: absent: CVA tenderness (L), CVA tenderness (R) - Neurological Exam Neurological Exam: Alert, Awake, Oriented x3 Assessment and Plan (1) HIV (human immunodeficiency virus infection) Status: Acute (2) AIDS (acquired immunodeficiency syndrome), CD4 <=200 Status: Acute (3) DVT (deep venous thrombosis) Status: Acute (4) DVT (deep venous thrombosis) Status: Acute - Assessment and Plan (Free Text) Assessment: old CVA left weakness [employer] Toxo CD4 < 200 HTN HLD OA r/o DVT venous stasis cardio eval and follow up possible d/c on PO rx
--- NOTE | 2018-02-08 22:16 | CP.PCM.PN ---
Subjective - Date & Time of Evaluation Date of Evaluation: 02/08/18 Time of Evaluation: 08:30 - Subjective Subjective: less pain minimal swelling Venous Duplex US of LE - NO DVT Lexiscan(July 2017)- no scan evidence of ischemia Objective - Vital Signs/Intake and Output Vital Signs (last 24 hours): Temp Pulse Resp BP Pulse Ox 98.6 F 79 20 112/77 98 02/08/18 16:00 02/08/18 16:00 02/08/18 16:00 02/08/18 16:00 02/08/18 16:00 Intake and Output: 02/08/18 02/09/18 18:59 06:59 Intake Total 600 Balance 600 - Medications Medications: Current Medications Acetaminophen (Tylenol 325mg Tab) 650 mg PO Q6 PRN PRN Reason: Pain, moderate (4-7) Amlodipine Besylate (Norvasc) 5 mg PO DAILY [facility] Last Admin: 02/08/18 10:07 Dose: 5 mg Emtricitabine/Tenofovir (Truvada 200 Mg-300 Mg) 1 tab PO DAILY [facility]; Protocol Last Admin: 02/08/18 10:07 Dose: 1 tab Enoxaparin Sodium (Lovenox) 40 mg SC DAILY [facility] Last Admin: 02/08/18 10:08 Dose: 40 mg Famotidine (Pepcid) 20 mg PO BID [facility] Last Admin: 02/08/18 18:12 Dose: 20 mg Raltegravir (Isentress) 400 mg PO BID [facility]; Protocol Last Admin: 02/08/18 18:11 Dose: 400 mg Rosuvastatin Calcium (Crestor) 10 mg PO [facility] Last Admin: 02/08/18 22:00 Dose: 10 mg - Labs Labs: 02/07/18 06:14 02/07/18 06:14 PT 12.1 SECONDS (9.7-12.2) 02/07/18 06:14 INR 1.1 02/07/18 06:14 APTT 37 SECONDS (21-34) H 02/07/18 06:14 - Constitutional Appears: Non-toxic - Head Exam Head Exam: NORMAL INSPECTION - Eye Exam Eye Exam: absent: Scleral icterus - Neck Exam Neck Exam: Full ROM - Respiratory Exam Respiratory Exam: NORMAL BREATHING PATTERN - Cardiovascular Exam Cardiovascular Exam: REGULAR RHYTHM - GI/Abdominal Exam GI & Abdominal Exam: Soft - Extremities Exam Extremities Exam: Pedal Edema - Neurological Exam Neurological Exam: Alert Assessment and Plan - Assessment and Plan (Free Text) Assessment: Leg pain Atypical Chest pain HTN HIV+ Plan: Will stop anticoagulation Cont HIV+meds
[2018-02-09 03:06] LABS: MCH 26.5 pg (27.0-33.0); MCV 81.9 fL (80.0-100.0)
[2018-02-09 07:35] VITALS: BP 108/72; PULSE 71; TEMP 97.9; O2SAT 96
[2018-02-09] MEDS: Enoxaparin 40 mg Syringe SC SCH (09:52)
[2018-02-09] MEDS: Emtricitabine-Tenofovir 200 mg-300 mg Tab PO SCH (09:52)
--- NOTE | 2018-02-09 11:42 | CARD ---
APPROVED REPORT Date of service: 02/08/2018 EKG Measurement Heart [id number] <Conclusion> Normal sinus rhythm Normal ECG
--- NOTE | 2018-02-09 13:03 | CP.PCM.PN ---
Subjective - Date & Time of Evaluation Date of Evaluation: 02/09/18 Time of Evaluation: 11:40 - Subjective Subjective: Patient seen today, denies any chest pain , sob, palpitations, dizziness,leg pain improved oob ambulating [address] hallway a febrile Objective - Vital Signs/Intake and Output Vital Signs (last 24 hours): Temp Pulse Resp BP Pulse Ox 97.9 F 71 20 108/72 96 02/09/18 07:32 02/09/18 07:32 02/09/18 07:32 02/09/18 07:32 02/09/18 07:32 Intake and Output: 02/09/18 02/09/18 06:59 18:59 Intake Total 450 240 Balance 450 240 - Medications Medications: Current Medications Acetaminophen (Tylenol 325mg Tab) 650 mg PO Q6 PRN PRN Reason: Pain, moderate (4-7) Amlodipine Besylate (Norvasc) 5 mg PO DAILY [facility] Last Admin: 02/09/18 09:52 Dose: 5 mg Emtricitabine/Tenofovir (Truvada 200 Mg-300 Mg) 1 tab PO DAILY [facility]; Protocol Last Admin: 02/09/18 09:52 Dose: 1 tab Enoxaparin Sodium (Lovenox) 40 mg SC DAILY [facility] Last Admin: 02/09/18 09:52 Dose: 40 mg Famotidine (Pepcid) 20 mg PO BID [facility] Last Admin: 02/09/18 09:52 Dose: 20 mg Raltegravir (Isentress) 400 mg PO BID [facility]; Protocol Last Admin: 02/09/18 10:12 Dose: 400 mg Rosuvastatin Calcium (Crestor) 10 mg PO [facility] Last Admin: 02/08/18 22:00 Dose: 10 mg - Labs Labs: 02/07/18 06:14 02/07/18 06:14 PT 12.1 SECONDS (9.7-12.2) 02/07/18 06:14 INR 1.1 02/07/18 06:14 APTT 37 SECONDS (21-34) H 02/07/18 06:14 Assessment and Plan - Assessment and Plan (Free Text) Assessment: A/P 57 yr old male admitted with left leg pain and swelling duplex scan LE - negative for DVT D/w Dr. Valdovinos cleared for discharge home today and f/u with Dr. Whitehead office on Monday and continue all home medications Discharge plan discussed with patient who understands and agrees with plan
--- NOTE | 2018-02-09 13:10 | CP.PCM.PN ---
Subjective - Date & Time of Evaluation Date of Evaluation: 02/09/18 Time of Evaluation: 08:00 - Subjective Subjective: doing well cleared for d/c by Dr Whitehead Objective - Vital Signs/Intake and Output Vital Signs (last 24 hours): Temp Pulse Resp BP Pulse Ox 97.9 F 71 20 108/72 96 02/09/18 07:32 02/09/18 07:32 02/09/18 07:32 02/09/18 07:32 02/09/18 07:32 Intake and Output: 02/09/18 02/09/18 06:59 18:59 Intake Total 450 240 Balance 450 240 - Medications Medications: Current Medications Acetaminophen (Tylenol 325mg Tab) 650 mg PO Q6 PRN PRN Reason: Pain, moderate (4-7) Amlodipine Besylate (Norvasc) 5 mg PO DAILY [facility] Last Admin: 02/09/18 09:52 Dose: 5 mg Emtricitabine/Tenofovir (Truvada 200 Mg-300 Mg) 1 tab PO DAILY [facility]; Protocol Last Admin: 02/09/18 09:52 Dose: 1 tab Enoxaparin Sodium (Lovenox) 40 mg SC DAILY [facility] Last Admin: 02/09/18 09:52 Dose: 40 mg Famotidine (Pepcid) 20 mg PO BID [facility] Last Admin: 02/09/18 09:52 Dose: 20 mg Raltegravir (Isentress) 400 mg PO BID [facility]; Protocol Last Admin: 02/09/18 10:12 Dose: 400 mg Rosuvastatin Calcium (Crestor) 10 mg PO HS [facility] Last Admin: 02/08/18 22:00 Dose: 10 mg - Labs Labs: 02/07/18 06:14 02/07/18 06:14 PT 12.1 SECONDS (9.7-12.2) 02/07/18 06:14 INR 1.1 02/07/18 06:14 APTT 37 SECONDS (21-34) H 02/07/18 06:14 Assessment and Plan (1) HIV (human immunodeficiency virus infection) Status: Acute (2) AIDS (acquired immunodeficiency syndrome), CD4 <=200 Status: Acute (3) DVT (deep venous thrombosis) Status: Acute (4) DVT (deep venous thrombosis) Status: Acute
[2018-02-09 13:11] LABS: HEMOGLOBIN A 96.2 Percent (>96.0); HEMOGLOBIN A2 2.8 Percent (1.8-3.5)
--- NOTE | 2018-02-09 22:29 | CP.PCM.PN ---
Subjective - Date & Time of Evaluation Date of Evaluation: 02/08/18 Time of Evaluation: 12:00 - Subjective Subjective: No complaints. Objective - Vital Signs/Intake and Output Vital Signs (last 24 hours): Temp Pulse Resp BP Pulse Ox 97.9 F 71 20 108/72 96 02/09/18 07:32 02/09/18 07:32 02/09/18 07:32 02/09/18 07:32 02/09/18 07:32 Intake and Output: 02/09/18 02/10/18 18:59 06:59 Intake Total 240 Balance 240 - Labs Labs: 02/07/18 06:14 02/07/18 06:14 PT 12.1 SECONDS (9.7-12.2) 02/07/18 06:14 INR 1.1 02/07/18 06:14 APTT 37 SECONDS (21-34) H 02/07/18 06:14 - Head Exam Head Exam: ATRAUMATIC - Eye Exam Eye Exam: Normal appearance - ENT Exam ENT Exam: Mucous Membranes Dry - Respiratory Exam Respiratory Exam: NORMAL BREATHING PATTERN - Cardiovascular Exam Cardiovascular Exam: +S1, +S2 - GI/Abdominal Exam GI & Abdominal Exam: Normal Bowel Sounds Assessment and Plan (1) Varicose vein of leg Assessment & Plan: venous duplex of LE's negative for DVT will discontinue therapeutic anticoagulation and start prophylaxis dosing Status: Acute (2) Leukopenia Assessment & Plan: mild, secondary to HIV Status: Acute (3) Microcytic erythrocytes Assessment & Plan: rule out iron deficiency rule out hemoglobinopathy Status: Acute
--- NOTE | 2018-02-09 22:30 | CP.PCM.PN ---
Subjective - Date & Time of Evaluation Date of Evaluation: 02/09/18 Time of Evaluation: 10:00 - Subjective Subjective: No complaints. Objective - Vital Signs/Intake and Output Vital Signs (last 24 hours): Temp Pulse Resp BP Pulse Ox 97.9 F 71 20 108/72 96 02/09/18 07:32 02/09/18 07:32 02/09/18 07:32 02/09/18 07:32 02/09/18 07:32 Intake and Output: 02/09/18 02/10/18 18:59 06:59 Intake Total 240 Balance 240 - Labs Labs: 02/07/18 06:14 02/07/18 06:14 PT 12.1 SECONDS (9.7-12.2) 02/07/18 06:14 INR 1.1 02/07/18 06:14 APTT 37 SECONDS (21-34) H 02/07/18 06:14 - Head Exam Head Exam: ATRAUMATIC - Eye Exam Eye Exam: Normal appearance - ENT Exam ENT Exam: Mucous Membranes Dry - Respiratory Exam Respiratory Exam: NORMAL BREATHING PATTERN Assessment and Plan (1) Varicose vein of leg Assessment & Plan: venous duplex of LE's negative for DVT will discontinue therapeutic anticoagulation and start prophylaxis dosing Status: Acute (2) Leukopenia Assessment & Plan: mild, secondary to HIV Status: Acute (3) Microcytic erythrocytes Assessment & Plan: rule out iron deficiency rule out hemoglobinopathy Status: Acute
[2018-02-10] MEDS ORDERED: Influenza Vaccine 60 MCG/0.5 ML SYR (3 yr & up) IM ONE (10:00)
== END 2018-02-09 13:58 | disposition home or self-care (01) | DRG 299 ==
LOC: C.ER 12:28 → C.9E 14:36 → C.3T 20:49
PROVIDERS: ADMIT Internal Medicine; ATTEND Internal Medicine
DX: I83.90 Asymptomatic varicose veins of unspecified lower extremity (principal); B20 Human immunodeficiency virus [HIV] disease; I10 Essential (primary) hypertension; K21.9 Gastro-esophageal reflux disease without esophagitis; D72.819 Decreased white blood cell count, unspecified; E78.00 Pure hypercholesterolemia, unspecified